=== PATIENT | female | born 1990 | race Native Hawaiian/Other Pacific Islander ===

== ENCOUNTER 2023-06-17 22:28 | Emergency (ER) | payer OTHER ==
[~2023-06-17] VITALS: Ht 154.9 cm; Wt 84.8 kg
== END 2023-06-18 01:22 | disposition home or self-care (01) ==
LOC: ED 22:28
DX: T78.3XXA Angioneurotic edema, initial encounter (principal); T74.11XA Adult physical abuse, confirmed, initial encounter
CPT/HCPCS: 99283